=== PATIENT | male | born 1965 | race Caucasian/White ===

== ENCOUNTER 2017-10-07 16:05 | Emergency (ER) | payer OTHER, BC ==
[~2017-10-07] VITALS: Ht 182.9 cm; Wt 95.8 kg
[2017-10-07] MEDS ORDERED: MOTRIN800 MG PO (19:06)
[2017-10-07] MEDS ORDERED: LIDODERM 5% P1 PATCH TD (19:06)
[2017-10-07] MEDS ORDERED: SKELAXIN800 MG PO (19:06)
[2017-10-07 19:25] VITALS: BP 140/87
== END 2017-10-07 19:49 | disposition home or self-care (01) ==
LOC: EME 16:05
DX: S39.012A Strain of muscle, fascia and tendon of lower back, initial encounter (principal); X50.0XXA Overexertion from strenuous movement or load, initial encounter; Y99.0 Civilian activity done for income or pay; Y92.512 Supermarket, store or market as the place of occurrence of the external cause; Z87.891 Personal history of nicotine dependence
CPT/HCPCS: 72220; 99281; 99284; J1885